=== PATIENT | female | born 1960 | race Caucasian/White ===

== ENCOUNTER 2016-11-10 13:54 | Outpatient (CLI) ==
[2016-09-04 17:18] VITALS: BMI 22.0
[2016-11-10 14:30] LABS: ALBUMIN 3.5 g/dL (3.4-5.0); ALBUMIN/GLOBULIN RATIO 1.06; ANION GAP 11.7; BILIRUBIN,TOTAL 0.38 mg/dL (0.00-1.20); BUN/CREATININE RATIO 5.98; CALCIUM 9.4 mg/dL (8.2-10.2); CHOL/HDL RATIO 3.4 (4.5-5.5); CREATININE 1.67 mg/dL (0.60-1.30); POTASSIUM 3.7 mmol/L (3.5-5.10); TOTAL PROTEIN 6.8 g/dL (6.4-8.2)
== END 2016-11-10 13:55 | disposition home or self-care (01) ==
LOC: LAB 13:54
PROVIDERS: ATTEND Internal Medicine Cardiovascular Disease
DX: E78.5 Hyperlipidemia, unspecified (principal); I10 Essential (primary) hypertension; J44.9 Chronic obstructive pulmonary disease, unspecified
CPT/HCPCS: 36415; 80053; 80061

== ENCOUNTER 2017-01-21 07:08 | Outpatient (CLI) ==
[2016-09-04 17:18] VITALS: BMI 22.0
--- NOTE | 2017-01-21 08:54 | US ---
EXAM: Ultrasound abdomen limited right upper quadrant HISTORY: Pain in upper abdomen COMPARISON: None TECHNIQUE: Limited ultrasound abdomen right upper quadrant was performed FINDINGS: Pancreas is obscured secondary bowel gas shadowing. Liver normal in size and echogenicit y. Main portal vein patent with normal direction of flow. Small mobile focal gallbladder sludge ve rsus small gallstone without definitive shadowing. No gallbladder wall thickening or pericholecysti c fluid. No biliary duct dilation with the common bile duct measuring 0.3 cm. Right kidney measure s 7.7 cm in length without hydronephrosis. IMPRESSION: Small focal gallbladder sludge versus small gallstone. No sonographic findings of chol ecystitis.
== END 2017-01-21 07:09 | disposition home or self-care (01) ==
LOC: RAD 07:08
PROVIDERS: ATTEND Nurse Practitioner Family
DX: R10.10 Upper abdominal pain, unspecified (principal)

== ENCOUNTER 2017-02-09 18:51 | Emergency (ER) ==
[2017-02-09 18:59] VITALS: BP 107/65; TEMP 97.7; BMI 19.5
[2017-02-09] MEDS ORDERED: NORCO 7.5-325 PO STA (19:18)
--- NOTE | 2017-02-09 19:21 | DI ---
EXAM: Three views of the right hand. History: Right hand trauma. Findings: Osteopenia. Mildly displaced intra-articular fracture of the distal right radius. No dis location. Well corticated ossific density seen adjacent to the ulnar styloid is either accessory oss icle or related to old trauma. Mild polyarticular joint space narrowing. Impression: Mildly displaced intra-articular distal right radial fracture.
--- NOTE | 2017-02-09 19:22 | ED.PDOC ---
General ED Provider: Dr. CAROLINA ZENDEJAS-ER Chief Complaint: Extremity Pain/Injury Stated Complaint: i fell on my hand and my wrist hurts Time Seen by Physician: 19:20 Mode of Arrival: Walk-In Information Source: Patient Exam Limitations: No limitations Primary Care Provider: HEATHER WARREN Nursing and Triage Documentation Reviewed and Agree: Yes Musculoskeletal Complaint Exam - Hand/Wrist Complaint/Exam Location of Pain: Reports: Right, Wrist Mechanism of Injury: Reports: Trauma Onset/Duration: 2hrs Symptoms Are: Still present Onset of Pain: Reports: Immediate Initial Severity: Mild Current Severity: Moderate Location: Reports: Discrete (right wrist) Character: Reports: Dull, Aching Alleviating: Reports: Rest Aggravating: Reports: Movement Associated Signs and Symptoms: Reports: Swelling. Denies: Redness, Fever, Weakness, Numbness, Tingling Hand/Wrist Findings: Present: Swelling, Ecchymosis, Abnormal contour Tenderness: Present: Radius Compartment Syndrome Risk Factors: Present: Pain. Absent: Paralysis, Pallor, Pulselessness, Paresthesias Differential Diagnoses: Contusion, Closed Fracture, Sprain, Strain Review of Systems - Review Of Systems Constitutional: Reports: No symptoms Eyes: Reports: No symptoms Ears, Nose, Mouth, Throat: Reports: No symptoms Respiratory: Reports: No symptoms Cardiac: Reports: No symptoms GI: Reports: No symptoms : Reports: No symptoms Musculoskeletal: Reports: Joint pain, Muscle pain Skin: Reports: No symptoms Neurological: Reports: No symptoms Endocrine: Reports: No symptoms Hematologic/Lymphatic: Reports: No symptoms All Other Systems: Reviewed and Negative Past Medical History - Past Medical History Previously Healthy: Yes Endocrine: Reports: None Cardiovascular: Reports: None Respiratory: Reports: COPD Hematological: Reports: None Gastrointestinal: Reports: None Genitourinary: Reports: None Neuro/Psych: Reports: Anxiety, Depression Musculoskeletal: Reports: Back Pain Cancer: Reports: None Last Menstrual Period: POST MENOPAUSAL Other Pertinent Past Medical History: PT HAD CHRONIC NECK AND BACK PAIN WITH DISC ISSUES - Surgical History General Surgical History: Reports: Unknown - Family History Family History: Reports: Unknown - Social History Smoking Status: Current every day smoker Hx Substance Use: No Alcohol Screening: None Lives: With family Physical Exam - Physical Exam Appearance: Well-appearing, No pain distress, Well-nourished Pain Distress: Moderate Eyes: HARRISON, EOMI, Conjunctiva clear ENT: Ears normal, Nose normal, Oropharynx normal Neck: Supple Respiratory: Airway patent, Breath sounds clear, Breath sounds equal, Respirations nonlabored Cardiovascular: RRR, Pulses normal, No rub, No murmur GI/: Soft, Nontender, No masses, Bowel sounds normal, No Organomegaly Musculoskeletal: Limited ROM Skin: Warm, Dry, Normal color Neurological: Sensation intact, Motor intact, Reflexes intact, Cranial nerves intact, Alert, Oriented Psychiatric: Affect appropriate, Mood appropriate Interpretation - Radiology Interpretation Radiology Interpretation By: ED Physician Radiology Results: Positive (nondisplaced right radius fx) Procedures - Splinting Location: right wrist Hand-Made Type: Orthoglass Splint: Sugar-tong Pre-Proc Neuro Vasc Exam: Normal Post-Proc Neuro Vasc Exam: Normal Re-Evaluation - Re-Evaluation Time of Re-Evaluation: 19:22 Status: Improved Vital Signs Stable: Yes Pain Level: 1 Appearance: NAD Lungs: Clear Skin: Warm and Dry Neuro: Alert and Oriented X3 CV: RRR Critical Care Note - Critical Care Note Total Time (mins): 0 Course - Course Orders, Labs, Meds: Orders Category Date Time Status Splint [ED SPLINT APPLICATION] .ONCE EMERGENCY 02/09/17 19:19 Active Hydrocodone Bit/Acetaminophen [[place] 7.5-325] MEDS 02/09/17 19:18 Discontinued 1 tab PO ONCE STA HAND, RIGHT 3 VIEWS Stat RADS 02/09/17 18:58 Taken WRIST, RIGHT 3 VIEWS Stat RADS 02/09/17 18:58 Taken Medications Discontinued Medications Generic Name Dose Route Start Last Admin Trade Name Freq PRN Reason Stop Dose Admin Acetaminophen/Hydrocodone Bitart 1 tab 02/09/17 19:18 [place] 7.5-325 PO 02/09/17 19:19 ONCE STA Vital Signs: Temp Pulse Resp BP Pulse Ox 02/09/17 18:53 97.7 F 78 18 107/65 97 Departure - Departure Time of Disposition: 19:22 Disposition: HOME SELF-CARE Discharge Problem: Distal radius fracture, right Qualifiers: Encounter type: initial encounter Fracture type: closed Fracture morphology: unspecified fracture morphology Qualifier Code: (S52.501A) Unspecified fracture of the lower end of right radius, initial encounter for closed fracture Instructions: Wrist Fracture in Adults (ED) Condition: Good Pt referred to PMD for follow-up: Yes Additional Instructions: keep elevated tonight--norco 7.5mg q 4hrs prn pain-20-f/u with orthopedic walk in clinic tomorrow Allergies/Adverse Reactions: Allergies Penicillins Allergy (Severe, Unverified 02/09/17 18:57) rash pt to get medical alert necklace Home Medications: Ambulatory Orders Metoprolol Succinate 25 mg PO DAILY 09/03/14 Rosuvastatin Calcium [Crestor] 40 mg PO DAILY 09/03/14 Cilostazol 50 mg PO BID 12/05/14 Aspirin [Aspirin Ec] 81 mg PO DAILY 01/30/15 Diazepam [Valium] 5 mg PO TID 06/08/16 Hydrocodone Bit/Acetaminophen [[place] 7.5-325] 1 tab PO TID 09/04/16 Disposition Discussed With: Patient
--- NOTE | 2017-02-09 19:26 | DI ---
EXAM: Right wrist three-view HISTORY: Trauma COMPARISON: None FINDINGS: Nondisplaced fracture distal radius. Mild osteoarthritis of the first CMC joint with olive nt space narrowing osteophyte formation. Mild osteoarthritis radiocarpal articulations with joint s pace narrowing. Well marginated ossification about the ulnar styloid, most consistent with old avul george. No focal soft tissue abnormality. IMPERSSION: 1. Nondisplaced fracture distal radius. 2. Well marginated ossification of the ulnar styloid, likely old avulsion fracture. 3. Mild osteoarthritis.
== END 2017-02-09 19:29 | disposition home or self-care (01) ==
LOC: ED 18:51
DX: S52.501A Unspecified fracture of the lower end of right radius, initial encounter for closed fracture (principal); W19.XXXA Unspecified fall, initial encounter; F17.210 Nicotine dependence, cigarettes, uncomplicated
CPT/HCPCS: 99283

== ENCOUNTER 2017-02-15 06:49 | Day surgery (SDC) ==
[2017-02-15] MEDS ORDERED: LIDOCAINE 1% 20 ML MDV ID ONE (07:10)
[2017-02-15] MEDS ORDERED: LIDOCAINE 2% 20 ML MDV ONE (07:10)
[2017-02-15] MEDS ORDERED: ALBUTEROL 0.083% NEB NEB STA (07:25)
[2017-02-15] MEDS ORDERED: DIPRIVAN 20 ML VIAL IVP ONE (09:00)
[2017-02-15] MEDS ORDERED: VERSED ONE (09:00)
[2017-02-15] MEDS ORDERED: LIDOCAINE HCL 2% LUER-JET ONE (09:00)
[2017-02-15 10:24] VITALS: BP 90/60; TEMP 97.7
--- NOTE | 2017-02-15 14:44 | OP ---
INDICATIONS FOR PROCEDURE: The patient is a 56 year old female who present complaining of abdominal pain. She says that she has persistent abdominal pain but it worse postprandial. She has been losing weight. She had an ultrasound showing biliary sludge and possible gallstone. She takes BID H2 blockers. She is scheduled for endoscopy evaluation and also scheduled for a screening colonoscopy. MEDICATIONS: SEE ANESTHESIA NOTES. PROCEDURE: 1. ENDOSCOPY GONZALES BIOPSY. 2. SCREENING COLONOSCOPY REPORT: The risks, benefits, alternatives and limitations were discussed in detail with the patient. Informed consent was obtained. After adequate sedation was achieved, the video endoscope was introduced in the posterior pharynx and esophagus under direct vision and easily advanced down to the second portion of the duodenum. I then slowly withdrew. The duodenal mucosa appeared unremarkable as did the duodenal bulb. In the antrum there is a small erosion. There is minimal erythema present. No other abnormalities noted. The body was unremarkable and the cardia and fundus was relatively unremarkable. Two biopsies from the antral wall and from the body obtained for the H.Pylori testing. I withdrew the scope back the esophagus which was unremarkable. The patient tolerated the procedure well with stable vital signs and pulse oximetry throughout. The patient's bed was turned and digital rectal exam revealed good tone no masses. The colonic scope was introduced to the rectum and advanced under direct visual guidance to the cecum and the cecum was identified by the appendiceal orifice and IC valve. I then slowly withdrew the scope in circumferential manner and examined the mucosa quite carefully. I looked on the proximal distal side of the folds and flexures as best as possible. I sent the retroflex scope in the right colon and the left colon to increase visualization. The colonic mucosa was remarkable in it's entire length including on retroflex view of the anal canal. The prep was good to fair there is a few spots where there is a little bit of adherent mucus stool with some solid material. I washed and suctioned this off as best as I could as I advanced the scope then again as I withdrew the scope. Again I noted no mucosa abnormalities. The withdraw time was 9 minutes and 10 seconds. The patient tolerated the procedure well with stable vital signs and pulse oximetry throughout. IMPRESSION: 1. Mild erosive antritis. 2. Normal colon exam RECOMMENDATIONS: 1. With the weight loss and persistent abdominal pain I do suggest a CT scan of the abdomen and pelvis with contrast to further evaluate. 2. I suggest a trial of Omeprazole 20mg PO QAM 3. If the CT scan is unremarkable and she still has abdominal pain despite a couple weeks of Omeprazole then I suggest she consider referral for laparoscopic cholecystectomy 4. I'm going to have her followup in two week with her referring [facility] Mackenzie Malave. At that point Mackenzie can assess the patient see if her CT scan is unremarkable and she if she responds to the Omeprazole and if she has not then consider referral for laparoscopic cholecystectomy evaluation. 5. Recommend repeat screening colon examination again in ten year unless signs or symptoms indicate otherwise. 6. The patient will return to see us in the office as needed CC: Mackenzie Malave MTDD
== END 2017-02-15 10:35 | disposition home or self-care (01) ==
LOC: SURG 06:49
PROVIDERS: ATTEND Internal Medicine Gastroenterology
DX: Z12.11 Encounter for screening for malignant neoplasm of colon (principal); R10.9 Unspecified abdominal pain; R63.4 Abnormal weight loss; K83.8 Other specified diseases of biliary tract; K29.60 Other gastritis without bleeding; E11.9 Type 2 diabetes mellitus without complications
CPT/HCPCS: 82962; 87339; 94640

== ENCOUNTER 2017-02-18 06:43 | Outpatient (CLI) ==
[2017-02-18 07:10] LABS: CREATININE 1.67 mg/dL (0.60-1.30)
--- NOTE | 2017-02-18 11:57 | CT ---
EXAM: CT of the abdomen pelvis without contrast. History: Abdominal pain. Comparison: Abdominal ultrasound 01/21/2017 Technique: Multiplanar CT images through the abdomen and pelvis were obtained without the administr ation of IV contrast Findings: Coronary calcifications. Trace anterior pericardial fluid. Calcified granuloma within th e right middle lobe. No acute osseous abnormalities. No discrete gallstones identified by CT. Calcified granuloma within the spleen. No focal liver les ions. Atherosclerotic vascular calcifications. Adrenal glands are unremarkable. No peripancreatic inflammation. No renal stones and no hydronephrosis. Mildly distended loops of ascending colon and transverse colon. The more distal colon is decompressed but no obstructing mass lesions identified . The cecum is low lying within the pelvis. The appendix is not seen. There are no secondary sign s of appendicitis. No free air. No ascites. No bladder wall thickening. Adnexal structures appea r appropriate for patient's age. No perirectal inflammation. Impression: 1. Mild colonic distension most likely related to ileus. No obstructing lesions identified. 2. Coronary artery disease.
== END 2017-02-18 06:44 | disposition home or self-care (01) ==
LOC: RAD 06:43
PROVIDERS: ATTEND Internal Medicine Gastroenterology
DX: R10.9 Unspecified abdominal pain (principal)
CPT/HCPCS: 36415; 82565

== ENCOUNTER 2017-03-09 08:38 | Outpatient (CLI) ==
[2017-03-09 09:19] LABS: CHOL/HDL RATIO 2.9 (4.5-5.5)
--- NOTE | 2017-03-09 11:53 | NM ---
EXAM: Hepatobiliary imaging HISTORY: Abdominal pain COMPARISON: Limited abdominal ultrasound on 01/21/2078 showed gallbladder sludge. TECHNIQUE: Patient was injected 5.3 mCi of technetium 99m Choletec intravenously. Multiple anterior scintigraphic images of the right upper quadrant region of the abdomen were obtained up to 1 hour i nterval. The the patient was infused 1 mcg of cholecystokinin intravenously and gallbladder ejectio n fraction was calculated. FINDINGS: There is normal visualization of liver, gallbladder, bile duct and small bowel loops. Gal lbladder ejection fraction is 82%. IMPRESSION: Normal study
== END 2017-03-09 08:39 | disposition home or self-care (01) ==
LOC: RAD 08:38
PROVIDERS: ATTEND Nurse Practitioner Family
DX: R10.9 Unspecified abdominal pain (principal); E78.5 Hyperlipidemia, unspecified
CPT/HCPCS: 36415; 80061

== ENCOUNTER 2017-03-30 12:02 | Outpatient (CLI) ==
[2017-03-30 12:42] LABS: ALBUMIN/GLOBULIN RATIO 0.91; ANION GAP 10.8; BILIRUBIN,TOTAL 0.23 mg/dL (0.00-1.20); BUN/CREATININE RATIO 8.63; CALCIUM 9.2 mg/dL (8.2-10.2); CHOL/HDL RATIO 3.2 (4.5-5.5); CREATININE 1.39 mg/dL (0.60-1.30); POTASSIUM 3.8 mmol/L (3.5-5.10); TOTAL PROTEIN 6.3 g/dL (6.4-8.2)
== END 2017-03-30 12:03 | disposition home or self-care (01) ==
LOC: LAB 12:02
PROVIDERS: ATTEND Internal Medicine Cardiovascular Disease
DX: N18.9 Chronic kidney disease, unspecified (principal)
CPT/HCPCS: 36415; 80053; 80061

== ENCOUNTER 2017-06-06 10:19 | Outpatient (CLI) ==
[2017-06-06 10:44] LABS: BASOPHILS % (AUTO) 0.7 % (0.0-3.0); EOSINOPHILS # (AUTO) 0.2 K/ul (0.0-0.7); EOSINOPHILS % (AUTO) 3.5 % (0.0-7.0); IMMATURE GRANULOCYTE % (AUTO) 0.3 % (0.0-5.0); LYMPHOCYTES # (AUTO) 2.5 K/uL (0.60-3.4); MEAN CORPUSCULAR HEMOGLOBIN 32.9 pg (27.0-31.0); MEAN CORPUSCULAR HGB CONC 34.3 (31.8-35.4); MEAN CORPUSCULAR VOLUME 95.9 fl (81.0-99.0); MONOCYTES # (AUTO) 0.3 K/uL (0.4-2.0); MONOCYTES % (AUTO) 5.7 (0-10); NEUTROPHILS # (AUTO) 2.6 K/ul (2.0-6.9); NEUTROPHILS % (AUTO) 45.8; PLATELET COUNT 199 10^3/uL (140-440); RED BLOOD COUNT 3.65 10^6/ul (4.20-5.40); WHITE BLOOD COUNT 5.75 K/ul (4.6-10.2)
[2017-06-06 11:34] LABS: ALBUMIN 3.2 g/dL (3.4-5.0); ALBUMIN/GLOBULIN RATIO 1.03; ANION GAP 13.5; BILIRUBIN,TOTAL 0.21 mg/dL (0.00-1.20); BUN/CREATININE RATIO 7.43; CALCIUM 9.1 mg/dL (8.2-10.2); CHOL/HDL RATIO 3.6 (4.5-5.5); CREATININE 1.48 mg/dL (0.60-1.30); POTASSIUM 3.5 mmol/L (3.5-5.10); TOTAL PROTEIN 6.3 g/dL (6.4-8.2)
== END 2017-06-06 10:20 | disposition home or self-care (01) ==
LOC: LAB 10:19
PROVIDERS: ATTEND Nurse Practitioner Family
DX: F41.9 Anxiety disorder, unspecified (principal); I10 Essential (primary) hypertension; J44.9 Chronic obstructive pulmonary disease, unspecified
CPT/HCPCS: 36415; 80053; 80061; 84439; 84443; 85025

== ENCOUNTER 2017-06-08 15:26 | Outpatient (CLI) ==
[2017-06-08 16:37] LABS: IMMATURE RETIC FRACTION 14.3; RETICULOCYTE % 1.94 %
[2017-06-08 17:07] LABS: FERRITIN 189.48 ng/mL (4.63-204.00); FOLATE 5.4 ng/mL (3.1-20.5)
== END 2017-06-08 15:27 | disposition home or self-care (01) ==
LOC: LAB 15:26
PROVIDERS: ATTEND Nurse Practitioner Family
DX: R71.8 Other abnormality of red blood cells (principal); N18.9 Chronic kidney disease, unspecified
CPT/HCPCS: 36415; 82306; 82607; 82728; 82746; 83540; 83550; 84466; 85045

== ENCOUNTER 2017-09-26 11:58 | Outpatient (CLI) ==
[2017-09-26 12:30] LABS: CHOL/HDL RATIO 3.3 (4.5-5.5)
== END 2017-09-26 11:59 | disposition home or self-care (01) ==
LOC: LAB 11:58
PROVIDERS: ATTEND Internal Medicine Cardiovascular Disease
DX: E78.5 Hyperlipidemia, unspecified (principal)
CPT/HCPCS: 36415; 80061

== ENCOUNTER 2017-12-07 09:45 | Outpatient (CLI) | END 2017-12-07 09:46 | disposition home or self-care (01) | LOC: LAB 09:45 | PROVIDERS: ATTEND Nurse Practitioner Family | DX: J44.9 Chronic obstructive pulmonary disease, unspecified (principal); E55.9 Vitamin D deficiency, unspecified; E78.5 Hyperlipidemia, unspecified; I10 Essential (primary) hypertension | CPT/HCPCS: 36415; 80053; 80061; 82306; 85025 ==

== ENCOUNTER 2018-06-05 09:52 | Outpatient (CLI) | END 2018-06-05 09:53 | disposition home or self-care (01) | LOC: LAB 09:52 | PROVIDERS: ATTEND Family Medicine | DX: E53.8 Deficiency of other specified B group vitamins (principal); E78.2 Mixed hyperlipidemia; I10 Essential (primary) hypertension; I12.9 Hypertensive chronic kidney disease with stage 1 through stage 4 chronic kidney disease, or unspecified chronic kidney disease; E55.9 Vitamin D deficiency, unspecified | CPT/HCPCS: 36415; 80053; 80061; 82306; 82607 ==

== ENCOUNTER 2018-06-19 16:07 | Outpatient (CLI) | END 2018-06-19 16:08 | disposition home or self-care (01) | LOC: FCC-LAB 16:07 | PROVIDERS: ATTEND Family Medicine | DX: E87.6 Hypokalemia (principal); E53.8 Deficiency of other specified B group vitamins | CPT/HCPCS: 36415; 80053; 83735 ==

== ENCOUNTER 2018-06-20 06:27 | Outpatient (CLI) ==
--- NOTE | 2018-06-21 08:42 | ECHO2D ---
Date of Exam: 06/20/18 Ordering Physician: DR. NUNO FRANCIS Room #: OP Reason for Echo: SYSTOLIC MURMUR, H/O AL M-Mode Normal Adult Results LV Dimensions Normal Adult Results AoV Opening excursions >1.6 1.4 LVEDD-base- 3.5-5.8 3.8 Ao root dimensions 2.0-3.7 3.0 LVESD-base- 3.1-4.6 L. Atrium dimensions 1.9-3.8 3.2 Post. Wall thickness 0.8-1.1 0.9 IV septum (thickness) 0.7-1.2 0.9 Post. Wall excursion 0.72-1.3 NORMAL Septal motion 0.4 Systolic motion R. Ventricular cavity 1.5-2.0 3.0 LVEF 60% 55% Paradoxical septal wall motion NORMAL 2-D : MILDLY HYPOKINETIC SEPTUM, CALCIFIC AORTIC VALVES, NO EFFUSION, NO THROMBUS, NORMAL LEFT VENTRICLE SIZE M-MODE: MV: NORMAL AV: CALCIFIC AORTIC VALVES TV: NORMAL PV: NORMAL CHAMBER SIZE: ENLARGED RIGHT VENTRICLE CAVITY WALL MOTION: HYPOKINETIC SEPTUM PERICARDIUM: NORMAL INTERPRETATION: 1. MILDLY HYPOKINETIC SEPTUM WITH LEFT VENTRICULAR EJECTION FRACTION 55% 2. CALCIFIC AORTIC VALVES--NO STENOSIS 3. NORMAL LEFT VENTRICLE AND LEFT ATRIAL SIZE 4. ENLARGED RIGHT VENTRICLE CAVITY MTDD
== END 2018-06-20 06:28 | disposition home or self-care (01) ==
LOC: CAR 06:27
PROVIDERS: ATTEND Family Medicine
DX: R01.1 Cardiac murmur, unspecified (principal)

== ENCOUNTER 2018-06-21 06:29 | Outpatient (CLI) ==
[2018-06-21] MEDS ORDERED: DOBUTAMINE 250 ML IV ONE ×2 (07:13→07:32)
[2018-06-21] MEDS ORDERED: ATROPINE SULFATE PFS ONE (07:14)
--- NOTE | 2018-06-22 10:30 | ECHOSTRESS ---
Date of Exam: 06/21/18 Ordering Physician: DR. SHAWN PADGETT Reason for Echo: CHEST PAIN, CABG, H/O CA, DOBUTAMINE STRESS TEST M-Mode Normal Adult Results LV Dimensions Normal Adult Results AoV Opening excursions >1.6 LVEDD-base- 3.5-5.8 Ao root dimensions 2.0-3.7 LVESD-base- 3.1-4.6 L. Atrium dimensions 1.9-3.8 Post. Wall thickness 0.8-1.1 IV septum (thickness) 0.7-1.2 Post. Wall excursion 0.72-1.3 Septal motion Systolic motion R. Ventricular cavity 1.5-2.0 LVEF 60% Paradoxical septal wall motion 2-D: MILDLY HYPOKINETIC SEPTUM AT REST AND WITH EXERCISE M-MODE: MV: AV: TV: PV: CHAMBER SIZE: WALL MOTION: MILDLY HYPOKINETIC SEPTUM AT REST AND WITH EXERCISE PERICARDIUM: INTERPRETATION: 1. MILDLY HYPOKINETIC SEPTUM AT REST AND WITH EXERCISE MTDD
--- NOTE | 2018-06-22 10:38 | DOBSTECHST ---
Ordering Physician: DR. SHAWN PADGETT Date of Test: 06/21/18 Reason for Examination: CHEST PAIN, CABG, H/O AL Height: 60" Weight: 101 LBS Current Medications: ALBUTEROL, PRILOSEC, FOSAMAX, VALIUM CILOSTAZOL Target Heart Rate: 137/162 S-T Segment Stage Time HR BPM BP mmhg Rhythm +/- Elevation Depression Comments/ Symptoms Control Sitting 78 116/58 SR X NONE Dobutamine 250mg/D5W 5cmg/KG/mn 10cmg/KG/mn 3:00 100 120/42 SR X NONE 15cmg/KG/mn 2:00 130 SR X NONE 20cmg/KG/mn :08 133 120/48 SR X NONE 25cmg/KG/mn 30cmg/KG/mn 35cmg/KG/mn 40cmg/KG/mn Time: 5' HR B/P Time: 14' HR B/P Time: HR B/P Recovery 110 118/50 Recovery 87 116 /60 Recovery Total Time: 7:08 98% OXYGEN SATURATION ON ROOM AIR WITH DOBUTAMINE INFUSION Interpretation: 1. TEST NEGATIVE FOR ISCHEMIC ST-T WAVE CHANGES 2. NO CHEST PAIN OR DISCOMFORT 3. MILDLY HYPOKINETIC SEPTUM AT REST AND WITH DOBUTAMINE INFUSION MTDD
== END 2018-06-21 06:30 | disposition home or self-care (01) ==
LOC: CAR 06:29
PROVIDERS: ATTEND Family Medicine
DX: R07.89 Other chest pain (principal); I25.2 Old myocardial infarction; Z95.5 Presence of coronary angioplasty implant and graft

== ENCOUNTER 2018-09-20 13:46 | Outpatient (CLI) | END 2018-09-20 13:47 | disposition home or self-care (01) | LOC: RAD 13:46 | PROVIDERS: ATTEND Family Medicine | DX: Z12.31 Encounter for screening mammogram for malignant neoplasm of breast (principal); E53.8 Deficiency of other specified B group vitamins; E55.9 Vitamin D deficiency, unspecified | CPT/HCPCS: 36415; 82306; 82607 ==

== ENCOUNTER 2018-12-19 15:12 | Outpatient (CLI) | END 2018-12-19 15:13 | disposition home or self-care (01) | LOC: LAB 15:12 | PROVIDERS: ATTEND Family Medicine | DX: R01.2 Other cardiac sounds (principal); E53.8 Deficiency of other specified B group vitamins; E55.9 Vitamin D deficiency, unspecified; N18.9 Chronic kidney disease, unspecified | CPT/HCPCS: 36415; 80053; 82306; 82607; 93005; 93010 ==